=== PATIENT | female | born 1980 | race Caucasian/White ===

== ENCOUNTER 2022-03-23 22:35 | Emergency (ER) | payer OTHER, MEDICAID, SELFPAY ==
[2022-03-23 22:38] VITALS: BP 135/80; PULSE 91; RESP 18; TEMP 36.6; O2SAT 97
--- NOTE | 2022-03-24 01:10 | ED_ITS ---
HPI - Extremity Problem General Chief complaint: Extremity Problem,Nontraumatic Stated complaint: hand numbness Time Seen by Provider: 03/24/22 01:06 Source: patient Mode of arrival: Ambulatory History of Present Illness HPI Narrative: Patient is a 42-year-old healthy female who presents with bilateral hand numbness. 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 She has been wearing braces for number of months. This evening at work she was told by her boss to go be evaluated get a note. She says her whole hand that goes numb it is not distorted fingers. Related Data Previous Rx's Medication Instructions Recorded ibuprofen 800 mg tablet 800 mg PO Q8H PRN #30 tab 03/24/22 Allergies Allergy/AdvReac Type Severity Reaction Status Date / Time No Known Drug Allergies Allergy Unverified 12/31/21 19:13 Review of Systems Review of Systems Narrative: GENERAL: Denies chills,fever HEENT: Denies throat pain RESPIRATORY: Denies dyspnea, cough, wheezing CARDIOVASCULAR: Denies chest pain, palpitations GASTROINTESTINAL: Denies nausea, vomiting MUSCULOSKELETAL: See HPI SKIN: No rash, no laceration, no pruritus NEUROLOGIC: Denies weakness, dizziness, headache, numbness 8 point review of systems is negative except for those stated above and HPI Patient History Social History Smoking Status: Current every day smoker Smoking Status: Current every day smoker Exam Initial Vital Signs Initial Vital Signs: Vital Signs Temperature 97.8 F 03/23/22 22:38 Pulse Rate 91 H 03/23/22 22:38 Respiratory Rate 18 03/23/22 22:38 Blood Pressure 135/80 03/23/22 22:38 Pulse Oximetry 97 03/23/22 22:38 GENERAL: Well-appearing, well-nourished and in no acute distress. CARDIOVASCULAR: peripheral pulses in tact, cap refill <2 sec RESPIRATORY: No respiratory distress, speaks in full sentences without difficulty EXTREMITIES: Normal range of motion, no clubbing or edema. Neurovascularly intact Bilateral distal radial pulses intact. Radial median nerve motor and sensation also intact., negative Phalen's and Tinel sign NEUROLOGICAL: Cranial nerves II through XII grossly intact. Normal gait and speech. SKIN: Warm, dry, no petechiae, no rashes or lesions. 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 She is wearing braces taking ibuprofen and still has some numbness. He will need further outpatient follow-up with primary care provider. Discharge Plan Departure Patient Disposition: Home Clinical Impression: Peripheral neuropathy Instructions: Peripheral Neuropathy Activity Restrictions/Additional Instructions: *You have been diagnosed with peripheral neuropathy *What to do: At this time encourage you to wear your brace is specially at work hand at night if needed as well all. Elevate ice and rest. You will likely need further workup with a primary care provider. *Continue to take medications as directed Ibuprofen 800 mg every 8 hours if needed for [id number] pain *Follow up with your primary care provider in 2-3 days or call [phone] *Return to ER if you should have increasing pain numbness tingling weakness or any new, worsening or concerning symptoms Prescriptions: New ibuprofen 800 mg tablet 800 mg PO Q8H PRN (Reason: pain) Qty: 30 0RF Referrals: Miscellaneous,DoctorMD [Primary Care Provider] - Stand Alone Forms: Work Release Note
== END 2022-03-24 01:54 | disposition home or self-care (01) ==
PROVIDERS: Emergency Provider Emergency Medicine
DX: G62.9 Polyneuropathy, unspecified (principal); Y99.0 Civilian activity done for income or pay
CPT/HCPCS: 99281

== ENCOUNTER 2022-08-04 16:33 | Emergency (ER) | payer OTHER, MEDICAID, SELFPAY ==
[2022-08-04 16:45] VITALS: BP 144/89; PULSE 80; RESP 16; TEMP 36.6; O2SAT 100; BMI 31.3
--- NOTE | 2022-08-04 17:07 | DI.RAD.S_ITS ---
PROCEDURE: XR KNEE RT 3V INDICATIONS: dog bite, effusion/foreign body? medial suprapatellar bite TECHNIQUE: 3 views of the knee were acquired. COMPARISON: None. FINDINGS: Bones: No fractures or dislocations. No suspicious bony lesions. Soft tissues: No joint effusion. No suspicious soft tissue calcifications. No radiopaque foreign body or soft tissue gas noted. IMPRESSION: No evidence acute bony abnormality of the right knee. If clinical suspicion and/or symptoms persist, further assessment with repeat plain films, or advanced imaging (e.g., CT, MRI, or bone scan) may be helpful for further assessment. Dictated by: Selvin See M.D. on 08/04/2022 at 18:29 Approved by: Selvin See M.D. on 08/04/2022 at 18:30
[2022-08-04] MEDS: BACITRACIN OINT 0.9 GM PCKT 1 APPLIC TOP (17:18)
[2022-08-04] MEDS: HYDROCODONE/ACET 5/325 TABLET 1 TAB PO (17:18)
[2022-08-04] MEDS: KETOROLAC 30 MG/ML VIAL 15 MG IM (17:18)
[2022-08-04] MEDS: TET,DIPH,PERTUSS(ACELL),VAC/PF 0.5 ML SYRINGE IM (17:19)
[2022-08-04] MEDS: AMOXICILLIN/CLAV 875/125 MG 1 TAB PO (17:19)
--- NOTE | 2022-08-04 17:37 | ED.ANIMALBIT ---
HPI - Animal Bite <GERBER Strong - Last Filed: 08/04/22 20:03> General Chief Complaint: Animal Bite Stated Complaint: Bit by dog, Right leg Time Seen by Provider: 08/04/22 16:57 Mode of arrival: Family Vehicle History of Present Illness HPI narrative: This is a 42-year-old female presents to the emergency department after a dog bite to her right medial knee which patient states was not significantly provoked but the dog has recently been through some life trauma and there was some food on the counter which fell at the same time. Patient states that she has reached out about rabies vaccination status but has not heard yet, patient states that she knows that this dog has been recently evaluated by the vet and does not wish to pursue rabies vaccinations at this time. Patient states that she has 2 puncture wounds on the medial aspect of her right knee, there is a swollen area with bruising and some bleeding. She does not remember when her last tetanus vaccination was. She denies any range of motion abnormalities, can ambulate, complains of soft tissue pain. Patient is on Suboxone. Related Data Previous Rx's Medication Instructions Recorded ibuprofen 800 mg tablet 800 mg PO Q8H PRN pain #30 tabs 03/24/22 amoxicillin 875 mg-potassium 1 tab PO BID 7 days #14 tabs 08/04/22 clavulanate 125 mg tablet hydrocodone 5 mg-acetaminophen 325 1 tab PO BID PRN pain #10 tabs 08/04/22 mg tablet ketorolac 10 mg tablet 10 mg PO TID PRN pain 5 days #14 08/04/22 tabs mupirocin 2 % topical ointment 1 applic topical BID #15 grams 08/04/22 Allergies Allergy/AdvReac Type Severity Reaction Status Date / Time No Known Drug Allergies Allergy Unverified 08/04/22 16:47 Review of Systems <GERBER Strong - Last Filed: 08/04/22 20:03> Review of Systems Narrative: Review of systems is negative for acute abnormalities unless otherwise noted in HPI Patient History <GERBER Strong - Last Filed: 08/04/22 20:03> Social History Smoking Status: Current every day smoker Smoking Status: Current every day smoker Substance Use Type: marijuana Exam <GERBER Strong - Last Filed: 08/04/22 20:03> Narrative Exam Narrative: Reviewed vitals signs and nursing notes. General: cooperative, comfortable, in no acute distress, well groomed HEENT: symmetrical facial expressions, moist mucous membranes MSK: moves all extremities, neurovascularly intact, no weakness, normal tone, right knee with 2 puncture wounds on the medial aspect, both of them with subcutaneous tissue present, no foreign bodies, wounds were irrigated extensively with normal saline and washed out. Skin: brisk capillary refill, without pallor or erythema Neuro: normal speech and cognition, A&O x3, ambulatory, clear speech Psych: mental status is grossly normal, congruent mood, normal affect, pleasant and cooperative Initial Vital Signs Initial Vital Signs: Vital Signs Temperature 98 F 08/04/22 16:45 Pulse Rate 80 08/04/22 16:45 Respiratory Rate 16 08/04/22 16:45 Blood Pressure 144/89 H 08/04/22 16:45 Pulse Oximetry 100 08/04/22 16:45 Oxygen Delivery Method 08/04/22 16:45 <Monika Mead DO - Last Filed: 08/07/22 08:24> Initial Vital Signs Initial Vital Signs: Vital Signs Temperature 98 F 08/04/22 16:45 Pulse Rate 80 08/04/22 16:45 Respiratory Rate 16 08/04/22 16:45 Blood Pressure 144/89 H 08/04/22 16:45 Pulse Oximetry 100 08/04/22 16:45 Oxygen Delivery Method 08/04/22 16:45 Procedures <GERBER Strong - Last Filed: 08/04/22 20:03> Laceration Repair Laceration 1: Site: lower extremity Side (If applicable): right Size (cm): 0.5 Description: other (Puncture wound x2, each of them less than 0.5 cm in diameter) Depth: simple, single layer Local Anesthetic: lidocaine 1% and with epi Amount of anesthesia used (mL): 2 Pre-repair: wound explored, irrigated extensively and deep structures intact Skin layer closed with: nylon Skin layer suture size: 5-0 Number of sutures: 4 Technique: simple, interrupted Course <GERBER Strong - Last Filed: 08/04/22 20:03> Orders Ordered: Discontinued Medications Hydrocodone Bitart/Acetaminophen (Hydrocodone/Acet 5/325 Tablet) 1 tab PO NOW ONE Stop: 08/04/22 17:07 Last Admin: 08/04/22 17:18 Dose: 1 tab Documented By: ARNAUD Amoxicillin/Clavulanate Potassium (Amoxicillin/Clav 875/125 Mg) 1 tab PO NOW ONE Stop: 08/04/22 17:07 Last Admin: 08/04/22 17:19 Dose: 1 tab Documented By: ARNAUD Bacitracin (Bacitracin Oint 0.9 Gm Pckt) 1 applic TOP NOW ONE Stop: 08/04/22 17:08 Last Admin: 08/04/22 17:18 Dose: 1 applic Documented By: ARNAUD Diphtheria/Tetanus/Acell Pertussis (Tet,Diph,Pertuss(Acell),Vac/Pf 0.5 Ml Syringe) 0.5 ml IM .ONCE ONE Stop: 08/04/22 16:57 Last Admin: 08/04/22 17:19 Dose: 0.5 ml Documented By: ARNAUD Ketorolac Tromethamine (Ketorolac 30 Mg/Ml Vial) 15 mg IM NOW ONE Stop: 08/04/22 17:07 Last Admin: 08/04/22 17:18 Dose: 15 mg Documented By: ARNAUD Vital Signs Vital signs: Vital Signs - 8 hr 08/04/22 16:45 08/04/22 18:30 Temperature 98 F Pulse Rate 80 73 Respiratory Rate 16 18 Blood Pressure 144/89 H 127/82 Pulse Oximetry 100 100 Oxygen Delivery Method Room Air Room Air <Monika Mead, - Last Filed: 08/07/22 08:24> Orders Ordered: Discontinued Medications Hydrocodone Bitart/Acetaminophen (Hydrocodone/Acet 5/325 Tablet) 1 tab PO NOW ONE Stop: 08/04/22 17:07 Last Admin: 08/04/22 17:18 Dose: 1 tab Documented By: ARNAUD Amoxicillin/Clavulanate Potassium (Amoxicillin/Clav 875/125 Mg) 1 tab PO NOW ONE Stop: 08/04/22 17:07 Last Admin: 08/04/22 17:19 Dose: 1 tab Documented By: ARNAUD Bacitracin (Bacitracin Oint 0.9 Gm Pckt) 1 applic TOP NOW ONE Stop: 08/04/22 17:08 Last Admin: 08/04/22 17:18 Dose: 1 applic Documented By: ARNAUD Diphtheria/Tetanus/Acell Pertussis (Tet,Diph,Pertuss(Acell),Vac/Pf 0.5 Ml Syringe) 0.5 ml IM .ONCE ONE Stop: 08/04/22 16:57 Last Admin: 08/04/22 17:19 Dose: 0.5 ml Documented By: ARNAUD Ketorolac Tromethamine (Ketorolac 30 Mg/Ml Vial) 15 mg IM NOW ONE Stop: 08/04/22 17:07 Last Admin: 08/04/22 17:18 Dose: 15 mg Documented By: ARNAUD Vital Signs Vital signs: Vital Signs - 8 hr 08/04/22 16:45 08/04/22 18:30 Temperature 98 F Pulse Rate 80 73 Respiratory Rate 16 18 Blood Pressure 144/89 H 127/82 Pulse Oximetry 100 100 Oxygen Delivery Method Room Air Room Air [facility] - Animal Bite <Joan Wray, [facility] - Last Filed: 08/04/22 20:03> Imaging Data Extremity x-ray #1: Radiologist's Impression: PROCEDURE:? XR KNEE RT 3V ? INDICATIONS:? dog bite, effusion/foreign body? medial suprapatellar bite ? TECHNIQUE:? 3 views of the knee were acquired.? ? COMPARISON:? None. ? FINDINGS:? ? Bones:? No fractures or dislocations.? No suspicious bony lesions.? ? Soft tissues:? No joint effusion.? No suspicious soft tissue calcifications.? No radiopaque foreign body or soft tissue gas noted. ? ? IMPRESSION:? No evidence acute bony abnormality of the right knee. ? If clinical suspicion and/or symptoms persist, further assessment with repeat plain films, or advanced imaging (e.g., CT, MRI, or bone scan) may be helpful for further assessment. ? ? ? Dictated by: Selvin See M.D. on 08/04/2022 at 18:29 ? ? Approved by: Selvin See M.D. on 08/04/2022 at 18:30 ? [facility] Narrative Medical decision making narrative: This is a 42-year-old female presents to the emergency department with puncture wounds to the medial aspect of her right knee after a known dog bit her. Patient states the dog was not provoked but the circumstances were explainable for a potential dog bite. Patient will follow-up with national van owner operator of the dog to ensure rabies vaccination is up-to-date or will return to the emergency department for rabies vaccinations as necessary. She denies any sensation changes, wounds were thoroughly irrigated with normal saline and without foreign body or signs of infection. Loose stitches were applied to both puncture wounds to allow for drainage, 2 sutures per wound and covered with bacitracin and an absorbent dressing. Patient understands to have her sutures removed in 8 days and was given prophylactic antibiotics for depth of the wound. Augmentin, hydrocodone, ketorolac and mupirocin ordered for treatment of her wounds. Patient is appropriate and amenable to discharge home. Vital signs are stable on repeat examination is unremarkable. Patient has been informed of results. Patient has been given strict return to ER precautions for any new or worsening symptoms. Patient understands to follow up closely with outpatient providers as instructed. Patient understands plan and agrees to discharge home. All questions and concerns answered at this time. Discharge Plan Departure Patient Disposition: Home Clinical Impression: Dog bite Qualifiers: Encounter type: initial encounter Qualified Code(s): W54.0XXA - Bitten by dog, initial encounter Instructions: DI for Dog Bite Activity Restrictions/Additional Instructions: *You have been diagnosed with a puncture wound to the medial aspect of your right knee from a dog bite. Please take this antibiotic until it is gone, take her medications with food and water. Please apply the topical antibiotic ointment twice a day to help prevent worsening infection. Please use the breakthrough pain medicine as needed, I noticed that you have history of Suboxone use, this may not be helpful with your Suboxone. Please let your prescriber know if you are taking. He received 4 sutures today which were placed loose with intent to allow drainage into heal from the bottom up to prevent infection and abscess. Please keep it covered while the sutures are in, you may take them out in 8 days if it looks well healed. Thank you for trusting us with your care, please use the pain medications as he needs them, and return if you develop any redness or streaking up your leg, fever or chills. You can have your sutures taken out in the walk-in clinic. Please return or call if you have any concerns about rabies. *What to do: *Please continue to take your regular medications as directed. [ x] New medication prescriptions sent to your pharmacy: [[facility] [place] ] [ ] New medication written as a paper prescription [ ] No new medications given *Please follow up with your primary care provider in 2-3 days, call for an appointment. Let them know you were seen in the Emergency Department and that we asked that you be seen for follow-up. We will electronically transmit a record of today's note if your PCP is in our system *If you do not have a primary care provider please contact [phone] to establish care with one of the [facility] primary care providers. *Return to Emergency Department if you should have any new, worsening, or concerning symptoms, such as [fever greater than 101F, chills, worsening pain, persistent vomiting or other bothersome symptoms]. Prescriptions: New amoxicillin-pot clavulanate 875-125 mg tablet 1 tab PO BID 7 Days Qty: 14 0RF mupirocin 2 % ointment 1 applic topical BID Qty: 15 0RF hydrocodone-acetaminophen 5-325 mg tablet 1 tab PO BID PRN (Reason: pain) Qty: 10 0RF ketorolac 10 mg tablet 10 mg PO TID PRN (Reason: pain) 5 Days Qty: 14 0RF Rx Instructions: Take with food and water and do not combine with ibuprofen please No Action ibuprofen 800 mg tablet 800 mg PO Q8H PRN (Reason: pain) Qty: 30 0RF Referrals: Miscellaneous,Doctor, MD [Primary Care Provider] - Visit Report Forms: Patient Portal/API <Monika Mead DO - Last Filed: 08/07/22 08:24> Cosign ED Attending Gina Attestation: I was immediately available in the department for consultation. Documentation has been reviewed.
[2022-08-04 18:30] VITALS: BP 127/82; PULSE 73; RESP 18; O2SAT 100
== END 2022-08-04 18:31 | disposition home or self-care (01) ==
PROVIDERS: Emergency Provider Nurse Practitioner Critical Care Medicine
DX: S81.851A Open bite, right lower leg, initial encounter (principal); W54.0XXA Bitten by dog, initial encounter; Z23 Encounter for immunization
CPT/HCPCS: 12001; 73562; 99283; 99284; 90715; J1885